=== PATIENT | female | born 1985 | race African-American/Black ===

== ENCOUNTER 2017-03-17 16:35 | Emergency (ER) | payer OTHER ==
[~2017-03-17] VITALS: Ht 160 cm; Wt 91.6 kg
[~2017-03-17 16:35] MED LIST: AMOXICILLIN500 MG PO; MICRONOR0.35 MG PO; Motrin PO; PSEUDOEPHEDRINE30 MG PO
[2017-03-17 20:14] VITALS: BP 128/78
== END 2017-03-17 20:14 | disposition home or self-care (01) ==
LOC: EME 16:35
DX: S09.90XA Unspecified injury of head, initial encounter (principal); W01.198A Fall on same level from slipping, tripping and stumbling with subsequent striking against other object, initial encounter; J45.909 Unspecified asthma, uncomplicated; Z91.040 Latex allergy status
CPT/HCPCS: 99281; 99283